=== PATIENT | female | born 1935 | race Caucasian/White ===

== ENCOUNTER → 2016-09-17 | Outpatient (CLI) | payer MEDICARE, BC ==
[~2016-09-17] MED LIST: ASPI-557 PO; CALC-191 PO; CIPR-212 PO; CYAN25002 PO; DICY10SO PO; FISH1CAP2 PO; GABA-336 PO; MELO-273 PO; METR500T PO; PSYL684P2 PO; TIMO5DRO35 LEFT EYE
--- NOTE | 2016-09-17 14:33 | DI ---
Indication: ITS.REASON: H90.3 SENSORINEURAL HEARING LOSS, DANAE; PRE-OP COCHLEAR IMPLANT PROCEDURE: CT TEMPORAL BONES W/O CONTRAST: Comparison: None Technique: Axial images were acquired from below the mastoid processes inferiorly to above the lateral semicircular canals superiorly. Dedicated bilateral axial and coronal 2-dimensional reformatted images were produced. Automated Exposure Control and Iterative Reconstruction dose reducing techniques were utilized. Findings: RIGHT TEMPORAL BONE: No fractures are evident. The external auditory canal is patent. The middle ear cavity demonstrates no significant mucosal thickening or fluid. The ossicular chain is intact. The cochlea and bony labyrinth are unremarkable. The internal auditory canal, facial nerve canal, and vestibular aqueduct are unremarkable. Mastoid air cells are clear. LEFT TEMPORAL BONE: No fractures are evident. The external auditory canal is patent. The middle ear cavity demonstrates no significant mucosal thickening or fluid. The ossicular chain is intact. The cochlea and bony labyrinth are unremarkable. The internal auditory canal, facial nerve canal, and vestibular aqueduct are unremarkable. Mastoid air cells are clear. Impression: Normal CT appearance of the bilateral temporal bones. .
== END ==
LOC: IMA 12:59
PROVIDERS: ATTEND Otolaryngology Otology & Neurotology
DX: H90.3 Sensorineural hearing loss, bilateral (principal)